=== PATIENT | female | born 1995 | race Caucasian/White ===

== ENCOUNTER 2017-12-02 18:40 | Emergency (ER) | payer OTHER ==
[2017-12-02 19:01] VITALS: BP 110/74; PULSE 79; TEMP 98.1; BMI 24.9
--- NOTE | 2017-12-02 19:06 | PDOC ---
History of Present Illness - History of Present Illness Initial Comments: 12/02/17 19:21 22 y/o F with no PMH presents to the ED with a rash underneath her right breast and between her breasts for 4 days. Patients reports associated itchiness. She denies rash anywhere else on her body. She denies any other symptoms. PAST MEDICAL HISTORY: no significant history PAST SURGICAL HISTORY: no significant history FAMILY HISTORY: no pertinent history SOCIAL HISTORY: Pt lives with family and is employed. MEDICATIONS: reviewed ALLERGIES: As per nursing notes Review of Systems: General: No fevers or chills, no weakness, no weight loss HEENT: No change in vision. No sore throat,. No ear pain CardioVascular: No chest pain or shortness of breath Respiratory: No cough, or wheezing. Gastrointestinal: no nausea, vomiting, diarrhea or constipation, No rectal bleeding Genitourinary: No dysuria, hematuria, or frequency Musculoskeletal: No joint or muscle pain or swelling Neurologic: No headache, vertigo, dizziness or loss of consciousness Psychiatric: No depression Skin: (+) rash underneath right breast and between breasts with associated itchiness Endocrine: No increased thirst or abnormal weight change Allergic: No skin or latex allergy All other systems reviewed and normal Physical Exam: GENERAL: The patient is awake, alert, and fully oriented, in no acute distress. HEAD: Normal with no signs of trauma. EYES: Pupils equal, round and reactive to light, extraocular movements intact, sclera anicteric, conjunctiva clear. EXTREMITIES: Normal range of motion, no edema. NEUROLOGICAL: Normal speech, normal gait. PSYCH: Normal mood, normal affect. SKIN: multiple small raised red papular lesion in the distribution underneath the right breast and between breasts. No associated erythema surrounding lesion or discharge. <Flaquita Lee - Last Filed: 12/02/17 19:21> - General History Source: Patient Exam Limitations: No Limitations - History of Present Illness Initial Comments: A portion of this note was documented by scribe services under my direction. I have reviewed the details of the note, within reason, and agree with the documentation. The case summary and management plan written by me. 12/02/17 19:39 Assessment and plan: This is a 22-year-old female who comes in complaining of approximately 4 days of a rash underneath her breast and between her breasts. On exam the rest appears to be Sigrid/fungal in nature. There is no underlying evidence of cellulitis or infection. Recommended that patient olive picker some antifungal cream or spray from the pharmacy and use it twice a day until the rash resolves. Patient discharged home she was also told to follow-up with her primary care DrKeya if rash not resolved within normal 4-5 days. <Mary Cruz I - Last Filed: 12/02/17 19:41> - General Chief Complaint: Rash Stated Complaint: ITCHY RASH Time Seen by Provider: 12/02/17 19:05 Past History <Flaquita Lee - Last Filed: 12/02/17 19:21> - Past Medical History COPD: No Other medical history: DENIES - Suicide/Smoking/Psychosocial Hx Smoking History: Never smoked Have you smoked in the past 12 months: No Information on smoking cessation initiated: No Hx Alcohol Use: (social) <Mary Cruz I - Last Filed: 12/02/17 19:41> - Past Medical History Allergies/Adverse Reactions: Allergies Allergy/AdvReac Type Severity Reaction Status Date / Time No Known Drug Allergies Allergy Verified 12/02/17 18:46 Home Medications: Ambulatory Orders NK [No Known Home Medication] 12/02/17 *Physical Exam - Vital Signs Last Vital Signs Temp Pulse Resp BP Pulse Ox 98.1 F 79 18 110/74 98 12/02/17 18:40 12/02/17 18:40 12/02/17 18:40 12/02/17 18:40 12/02/17 18:40 <Flaquita Lee - Last Filed: 12/02/17 19:21> - Vital Signs Last Vital Signs Temp Pulse Resp BP Pulse Ox 98.1 F 79 18 110/74 98 12/02/17 18:40 12/02/17 18:40 12/02/17 18:40 12/02/17 18:40 12/02/17 18:40 <Mary Cruz I - Last Filed: 12/02/17 19:41> *DC/Admit/Observation/Transfer - Attestations Scribe Attestion: 12/02/17 19:21 Documentation prepared by Flaquita Lee, acting as medical affairs leader for Mary Cruz MD. <Flaquita Lee - Last Filed: 12/02/17 19:21> - Discharge Dispostion Admit: No <Mary Cruz I - Last Filed: 12/02/17 19:41> Diagnosis at time of Disposition: Candidiasis of breast - Discharge Dispostion Disposition: HOME Condition at time of disposition: Stable - Referrals Referrals: Carlos Turner [Primary Care Provider] - - Patient Instructions Additional Instructions: Go to the pharmacy and get an antifungal such as Tinactin in either a sprain or cream form. Apply to the affected area twice a day until lesions have resolved. Return to the emergency department immediately with ANY new, persistent or worsening symptoms. Continue any medications as previously prescribed by your physician. You should follow up with your primary doctor as soon as possible regarding today's emergency department visit. . Please make sure your doctor reviews the results of your emergency evaluation. Thank you for coming to the Emergency Department today for your care. It was a pleasure to see you today. Please note that your evaluation is INCOMPLETE until you follow-up with your doctor. - Post Discharge Activity
== END 2017-12-02 19:22 | disposition home or self-care (01) ==
LOC: FER 18:40
DX: B37.89 Other sites of candidiasis (principal)
CPT/HCPCS: 99282-25